=== PATIENT | female | born 1980 | race African-American/Black ===

== ENCOUNTER 2021-11-10 13:04 | Inpatient (IN) | payer OTHER ==
[~2021-11-10] VITALS: Ht 175.3 cm; Wt 145.1 kg
[2021-11-10] MEDS ORDERED: ONDANSETRON HCL INJ 2MG/ML 2ML 2 MG/ML VIAL IV STA ×2 (13:20→16:52)
[2021-11-10] MEDS ORDERED: LACTATED RINGER'S 1,000 ML INJ ONE (13:30)
[2021-11-10 13:59] LABS: BASOPHILS % 0.2 % (0.0-1.0); HEMATOCRIT 35.2 % (34.2-44.1); HEMOGLOBIN 11.4 g/dL (12.0-16.0); LYMPHOCYTES # (AUTO) 1.9 (1.0-3.2); LYMPHOCYTES % 14.4 % (18.0-39.1); MEAN CORPUSCULAR HEMOGLOBIN 28.2 pg (28-32); MEAN CORPUSCULAR HGB CONC 32.4 g/dL (31-35); MEAN CORPUSCULAR VOLUME 87.1 fL (81-99); MONOCYTES # (AUTO) 0.7 (0.2-0.8); MONOCYTES % 5.5 % (4.4-11.3); NEUTROPHILS # (AUTO) 10.4 (2.1-6.9); NEUTROPHILS % 79.4 % (38.7-80.0); PLATELET COUNT 252 x10e3/uL (140-360); RED BLOOD COUNT 4.04 x10e6/uL (3.6-5.1); RED CELL DISTRIBUTION WIDTH 13.8 % (11.7-14.4)
[2021-11-10 14:21] LABS: ALBUMIN 3.7 g/dL (3.5-5.0); ALBUMIN/GLOBULIN RATIO 0.8 (0.8-2.0); ANION GAP 32.5 mmol/L (8-16); CALCIUM 9.5 mg/dL (8.4-10.2); CREATININE, SERUM 15.38 mg/dL (0.57-1.11); LIPASE 25 U/L (8-78)
[2021-11-10 14:23] LABS: POTASSIUM 5.5 mmol/L (3.5-5.1)
[2021-11-10] MEDS ORDERED: ALBUTEROL SULF 0.083% NEB SOLN 3 ML NEB NEB STA (14:50)
[2021-11-10] MEDS ORDERED: DEXTROSE 50% SYRINGE 50 ML IV STA (14:50)
[2021-11-10] MEDS ORDERED: SODIUM BICARBONATE 8.4% INJ 50 ML SYR IV STA (14:50)
[2021-11-10] MEDS ORDERED: SOD POLYSTYRENE SULFONATE SUSP 15 GM/60 ML BTL PO ONE (15:00)
[2021-11-10] MEDS ORDERED: CALCIUM GLUC 1 G/50 ML NACL 100 ML IV ONE (15:00)
[2021-11-10] MEDS ORDERED: INSULIN REGULAR, HUMAN 100 UNIT/1 ML IV ONE (15:00)
[2021-11-10] MEDS ORDERED: LIDOCAINE HCL 1% LOCAL INJ 20 ML VIAL ONE (15:24)
[2021-11-10] MEDS ORDERED: HEPARIN SOD (PORCINE) 1000 UNIT/ML 10ML MDV IV ONE (15:45)
[2021-11-10] MEDS ORDERED: HEPARIN SOD (PORCINE) 1000 UNIT/ML SDV ONE (15:57)
[2021-11-10] MEDS ORDERED: SODIUM CHLORIDE 0.9% 1000ML 1,000 ML ONE (17:36)
[2021-11-10 18:54] LABS: CLARITY,URINE CLOUDY (CLEAR); COLOR,URINE YELLOW (YELLOW); KETONES,URINE TRACE (NEGATIVE); LEUKOCYTE ESTERASE ,URINE NEGATIVE (NEGATIVE); NITRITE,URINE NEGATIVE (NEGATIVE); PROTEIN,URINE DIPSTICK >=300 (NEGATIVE); URINE UROBILINOGEN 0.2 mg/dL (0.2 - 1)
[2021-11-10 19:01] LABS: AMORPHOUS SEDIMENT,URINE MODERATE (FEW); BACTERIA,URINE MANY /HPF
[2021-11-10 19:34] VITALS: BP 144/83
[2021-11-10] MEDS ORDERED: TIZANIDINE HCL4 MG PO (19:38)
[2021-11-10] MEDS ORDERED: EZETIMIBE10 MG PO (19:38)
[2021-11-10] MEDS ORDERED: ALPRAZOLAM0.5 MG PO (19:38)
[2021-11-10] MEDS ORDERED: AMLODIPINE BESYL5 MG PO (19:38)
[2021-11-10] MEDS ORDERED: AMBIEN10 MG PO (19:38)
[2021-11-10] MEDS ORDERED: DIVALPROEX SOD500 MG PO (19:38)
[2021-11-10] MEDS ORDERED: LISINOPRIL-HCT1 EACH PO (19:38)
[2021-11-10] MEDS ORDERED: TOUJEO SOL300 UNIT/1 SQ (19:38)
[2021-11-10] MEDS ORDERED: LEVOTHYROXINE75 MCG PO (19:38)
[2021-11-10] MEDS ORDERED: OZEMPIC1 MG/0.71 SQ (19:38)
[2021-11-10] MEDS ORDERED: PRAVASTATIN SOD80 MG PO (19:38)
[2021-11-10] MEDS ORDERED: RISPERIDONE2 MG PO (19:38)
[2021-11-10] MEDS ORDERED: METFORMIN HCL1000 MG PO (19:38)
[2021-11-10] MEDS ORDERED: ALPRAZOLAM 0.5 MG TAB PO PRN (21:15)
[2021-11-10] MEDS: SIMVASTATIN 40 MG TAB PO SCH (21:15)
[2021-11-10] MEDS: RISPERIDONE 1 MG TAB PO SCH (21:15)
[2021-11-10] MEDS: DEPAKOTE DELAYED-RELEASE TAB 500 MG PO SCH (21:15)
[2021-11-10] MEDS: SODIUM CHLORIDE 0.9% 1000ML 1,000 ML IV SCH (21:36)
[2021-11-10] MEDS ORDERED: ONDANSETRON HCL INJ 2MG/ML 2ML 2 MG/ML VIAL IV PRN (21:45)
[2021-11-11] VITALS (7 sets, daily range): BP systolic 107–141; BP diastolic 65–88
[2021-11-11] MEDS: SODIUM CHLORIDE 0.9% 1000ML 1,000 ML IV SCH ×3 (03:38→21:00)
[2021-11-11 05:38] LABS: BASOPHILS % 0.2 % (0.0-1.0); HEMATOCRIT 31.4 % (34.2-44.1); HEMOGLOBIN 10.5 g/dL (12.0-16.0); LYMPHOCYTES # (AUTO) 1.8 (1.0-3.2); LYMPHOCYTES % 14.6 % (18.0-39.1); MEAN CORPUSCULAR HEMOGLOBIN 28.6 pg (28-32); MEAN CORPUSCULAR HGB CONC 33.4 g/dL (31-35); MEAN CORPUSCULAR VOLUME 85.6 fL (81-99); MONOCYTES # (AUTO) 1.3 (0.2-0.8); MONOCYTES % 10.1 % (4.4-11.3); NEUTROPHILS # (AUTO) 9.4 (2.1-6.9); NEUTROPHILS % 74.6 % (38.7-80.0); PLATELET COUNT 219 x10e3/uL (140-360); RED BLOOD COUNT 3.67 x10e6/uL (3.6-5.1); RED CELL DISTRIBUTION WIDTH 13.6 % (11.7-14.4)
[2021-11-11 06:00] LABS: ANION GAP 26.8 mmol/L (8-16); CALCIUM 8.7 mg/dL (8.4-10.2); CREATININE, SERUM 15.7 mg/dL (0.57-1.11); POTASSIUM 4.8 mmol/L (3.5-5.1)
[2021-11-11] MEDS: LEVOTHYROXINE SODIUM 75 MCG TAB PO SCH (06:00)
[2021-11-11] MEDS ORDERED: MANNITOL 25% 12.5GM/50ML 100 ML ONE (08:50)
[2021-11-11] MEDS ORDERED: SODIUM CHLORIDE 0.9% 1000ML 2,000 ML ONE (08:51)
[2021-11-11] MEDS ORDERED: METFORMIN HCL 500 MG TAB PO SCH (09:00)
[2021-11-11] MEDS: EZETIMIBE 10 MG TAB PO SCH (09:25)
[2021-11-11] MEDS: RISPERIDONE 1 MG TAB PO SCH ×2 (09:25→17:41)
[2021-11-11] MEDS: DEPAKOTE DELAYED-RELEASE TAB 500 MG PO SCH ×2 (09:25→17:41)
[2021-11-11] MEDS ORDERED: MANNITOL 25% 12.5GM/50 ML VIAL IV PRN (09:30)
[2021-11-11] MEDS ORDERED: SODIUM CHLORIDE 0.9% 1000ML 2,000 ML IV PRN (09:30)
[2021-11-11] MEDS ORDERED: HEPARIN SOD (PORCINE) 1000 UNIT/ML SDV IV PRN (09:30)
[2021-11-11] MEDS: LISINOPRIL 20 MG TAB PO SCH (13:43)
[2021-11-11] MEDS: AMLODIPINE BESYLATE 5 MG TAB PO SCH (13:44)
[2021-11-11] MEDS: HYDROCHLOROTHIAZIDE 25 MG TAB PO SCH (13:44)
[2021-11-11] MEDS: SIMVASTATIN 40 MG TAB PO SCH (20:57)
[2021-11-11] MEDS: TIZANIDINE HCL 4 MG TAB PO PRN (20:57)
[2021-11-11] MEDS: ZOLPIDEM TARTRATE 10 MG TAB PO PRN (20:57)
[2021-11-12] VITALS (8 sets, daily range): BP systolic 101–130; BP diastolic 66–85
[2021-11-12] MEDS: SODIUM CHLORIDE 0.9% 1000ML 1,000 ML IV SCH (06:19)
[2021-11-12] MEDS: LEVOTHYROXINE SODIUM 75 MCG TAB PO SCH (06:19)
[2021-11-12 06:25] LABS: BASOPHILS % 0.3 % (0.0-1.0); EOSINOPHILS # (AUTO) 0.1 (0.0-0.4); EOSINOPHILS % 0.9 % (0.0-6.0); HEMATOCRIT 29.2 % (34.2-44.1); HEMOGLOBIN 9.5 g/dL (12.0-16.0); LYMPHOCYTES % 21.5 % (18.0-39.1); MEAN CORPUSCULAR HEMOGLOBIN 28.4 pg (28-32); MEAN CORPUSCULAR HGB CONC 32.5 g/dL (31-35); MEAN CORPUSCULAR VOLUME 87.4 fL (81-99); MONOCYTES # (AUTO) 1.1 (0.2-0.8); MONOCYTES % 11.9 % (4.4-11.3); PLATELET COUNT 169 x10e3/uL (140-360); RED BLOOD COUNT 3.34 x10e6/uL (3.6-5.1); RED CELL DISTRIBUTION WIDTH 13.5 % (11.7-14.4)
[2021-11-12 06:48] LABS: ANION GAP 14.9 mmol/L (8-16); CREATININE, SERUM 11.34 mg/dL (0.57-1.11); POTASSIUM 3.9 mmol/L (3.5-5.1)
[2021-11-12] MEDS: RISPERIDONE 1 MG TAB PO SCH ×2 (08:40→17:00)
[2021-11-12] MEDS: DEPAKOTE DELAYED-RELEASE TAB 500 MG PO SCH ×2 (08:40→17:00)
[2021-11-12] MEDS: EZETIMIBE 10 MG TAB PO SCH (08:41)
[2021-11-12] MEDS ORDERED: SODIUM CHLORIDE 0.9% 250ML 500 ML IV PRN (10:15)
[2021-11-12] MEDS ORDERED: ALBUMIN 25% 12.5GM 0.25 GM/ML BTL IV PRN (10:15)
[2021-11-12] MEDS ORDERED: SODIUM CHLORIDE 0.9% 1000ML 2,000 ML IV PRN (10:15)
[2021-11-12] MEDS ORDERED: HEPARIN SOD (PORCINE) 1000 UNIT/ML SDV IV PRN (10:15)
[2021-11-12] MEDS: LISINOPRIL 20 MG TAB PO SCH (13:09)
[2021-11-12] MEDS: HYDROCHLOROTHIAZIDE 25 MG TAB PO SCH (13:09)
[2021-11-12] MEDS: AMLODIPINE BESYLATE 5 MG TAB PO SCH (13:09)
[2021-11-12 18:27] LABS: INR 0.98; PROTHROMBIN TIME 13.9 seconds (11.9-14.5)
[2021-11-12 18:28] LABS: PARTIAL THROMBOPLASTIN TIME 28.6 seconds (23.8-35.5)
[2021-11-12 21:09] LABS: TOTAL PROTEIN 24HR, URINE 1417.5 mg/24hr (50-100); TOTAL PROTEIN, URINE 40.5 mg/dL (1-14)
[2021-11-12] MEDS: SIMVASTATIN 40 MG TAB PO SCH (21:27)
[2021-11-12] MEDS: ZOLPIDEM TARTRATE 10 MG TAB PO PRN (21:33)
[2021-11-12] MEDS: TIZANIDINE HCL 4 MG TAB PO PRN (21:34)
[2021-11-13] VITALS (8 sets, daily range): BP systolic 113–143; BP diastolic 67–88
[2021-11-13 07:15] LABS: ANION GAP 14.7 mmol/L (8-16); CALCIUM 8.7 mg/dL (8.4-10.2); CREATININE, SERUM 5.87 mg/dL (0.57-1.11); POTASSIUM 3.7 mmol/L (3.5-5.1)
[2021-11-13] MEDS ORDERED: DEXTROSE 50% SYRINGE 50 ML IV PRN (07:45)
[2021-11-13] MEDS: INSULIN LISPRO 100 UNIT/1 ML 3ML VIAL SQ SCH ×7 (08:29→21:43)
[2021-11-13] MEDS: RISPERIDONE 1 MG TAB PO SCH ×2 (08:29→16:20)
[2021-11-13] MEDS: LEVOTHYROXINE SODIUM 75 MCG TAB PO SCH (08:29)
[2021-11-13] MEDS: DEPAKOTE DELAYED-RELEASE TAB 500 MG PO SCH ×2 (08:29→16:20)
[2021-11-13] MEDS: EZETIMIBE 10 MG TAB PO SCH (08:30)
[2021-11-13] MEDS: LISINOPRIL 20 MG TAB PO SCH (11:39)
[2021-11-13] MEDS: HYDROCHLOROTHIAZIDE 25 MG TAB PO SCH (11:39)
[2021-11-13] MEDS: AMLODIPINE BESYLATE 5 MG TAB PO SCH (11:39)
[2021-11-13] MEDS ORDERED: INSULIN GLARGINE 100 UNITS/ML VIAL SQ SCH (21:00)
[2021-11-13] MEDS: SIMVASTATIN 40 MG TAB PO SCH (21:42)
[2021-11-13] MEDS: ZOLPIDEM TARTRATE 10 MG TAB PO PRN (21:45)
[2021-11-13] MEDS: TIZANIDINE HCL 4 MG TAB PO PRN (21:45)
[2021-11-14] VITALS (8 sets, daily range): BP systolic 91–135; BP diastolic 66–85
[2021-11-14] MEDS: LEVOTHYROXINE SODIUM 75 MCG TAB PO SCH (05:50)
[2021-11-14 07:22] LABS: BASOPHILS % 0.3 % (0.0-1.0); EOSINOPHILS # (AUTO) 0.3 (0.0-0.4); EOSINOPHILS % 2.7 % (0.0-6.0); HEMATOCRIT 31.4 % (34.2-44.1); HEMOGLOBIN 10.2 g/dL (12.0-16.0); LYMPHOCYTES # (AUTO) 1.9 (1.0-3.2); LYMPHOCYTES % 19.8 % (18.0-39.1); MEAN CORPUSCULAR HEMOGLOBIN 28.3 pg (28-32); MEAN CORPUSCULAR HGB CONC 32.5 g/dL (31-35); MONOCYTES # (AUTO) 0.9 (0.2-0.8); MONOCYTES % 9.5 % (4.4-11.3); NEUTROPHILS # (AUTO) 6.6 (2.1-6.9); NEUTROPHILS % 67.3 % (38.7-80.0); PLATELET COUNT 120 x10e3/uL (140-360); RED BLOOD COUNT 3.61 x10e6/uL (3.6-5.1)
[2021-11-14 07:49] LABS: ANION GAP 13.6 mmol/L (8-16); CALCIUM 9.1 mg/dL (8.4-10.2); CREATININE, SERUM 3.09 mg/dL (0.57-1.11); POTASSIUM 3.6 mmol/L (3.5-5.1)
[2021-11-14] MEDS: INSULIN LISPRO 100 UNIT/1 ML 3ML VIAL SQ SCH ×7 (08:14→21:00)
[2021-11-14] MEDS: DEPAKOTE DELAYED-RELEASE TAB 500 MG PO SCH ×2 (08:14→16:34)
[2021-11-14] MEDS: EZETIMIBE 10 MG TAB PO SCH (08:15)
[2021-11-14] MEDS: AMLODIPINE BESYLATE 5 MG TAB PO SCH (08:15)
[2021-11-14] MEDS: RISPERIDONE 1 MG TAB PO SCH ×2 (08:15→16:34)
[2021-11-14] MEDS: SIMVASTATIN 40 MG TAB PO SCH (20:55)
[2021-11-14] MEDS: INSULIN GLARGINE 100 UNITS/ML VIAL SQ SCH (21:00)
[2021-11-14] MEDS: ZOLPIDEM TARTRATE 10 MG TAB PO PRN (22:00)
[2021-11-14] MEDS: TIZANIDINE HCL 4 MG TAB PO PRN (22:00)
[2021-11-15] VITALS (7 sets, daily range): BP systolic 96–141; BP diastolic 61–92
[2021-11-15 05:52] LABS: BASOPHILS # (AUTO) 0.1 (0.0-0.1); BASOPHILS % 0.4 % (0.0-1.0); EOSINOPHILS # (AUTO) 0.2 (0.0-0.4); EOSINOPHILS % 1.5 % (0.0-6.0); HEMATOCRIT 31.8 % (34.2-44.1); HEMOGLOBIN 10.4 g/dL (12.0-16.0); LYMPHOCYTES % 26.1 % (18.0-39.1); MEAN CORPUSCULAR HEMOGLOBIN 28.4 pg (28-32); MEAN CORPUSCULAR HGB CONC 32.7 g/dL (31-35); MEAN CORPUSCULAR VOLUME 86.9 fL (81-99); MONOCYTES % 8.3 % (4.4-11.3); NEUTROPHILS # (AUTO) 7.4 (2.1-6.9); NEUTROPHILS % 63.2 % (38.7-80.0); PLATELET COUNT 134 x10e3/uL (140-360); RED BLOOD COUNT 3.66 x10e6/uL (3.6-5.1); RED CELL DISTRIBUTION WIDTH 12.8 % (11.7-14.4)
[2021-11-15] MEDS: LEVOTHYROXINE SODIUM 75 MCG TAB PO SCH (06:00)
[2021-11-15 06:17] LABS: ANION GAP 14.2 mmol/L (8-16); CREATININE, SERUM 2.66 mg/dL (0.57-1.11); POTASSIUM 3.2 mmol/L (3.5-5.1)
[2021-11-15] MEDS: INSULIN LISPRO 100 UNIT/1 ML 3ML VIAL SQ SCH ×7 (09:14→21:44)
[2021-11-15] MEDS: EZETIMIBE 10 MG TAB PO SCH (09:15)
[2021-11-15] MEDS: DEPAKOTE DELAYED-RELEASE TAB 500 MG PO SCH ×2 (09:15→19:34)
[2021-11-15] MEDS: AMLODIPINE BESYLATE 5 MG TAB PO SCH (09:15)
[2021-11-15] MEDS: RISPERIDONE 1 MG TAB PO SCH ×2 (09:15→19:34)
[2021-11-15] MEDS ORDERED: ONDANSETRON HCL 4 MG ORAL DISINTEGRATING TAB PO PRN (12:45)
[2021-11-15] MEDS ORDERED: LIDOCAINE HCL 1% LOCAL INJ 20 ML VIAL ONE (12:55)
[2021-11-15] MEDS ORDERED: FENTANYL CITRATE/PF 100MCG/2 ML INJ ONE (13:06)
[2021-11-15] MEDS ORDERED: MIDAZOLAM HCL 2 MG/2 ML VIAL ONE (13:06)
[2021-11-15] MEDS: SIMVASTATIN 40 MG TAB PO SCH (21:25)
[2021-11-15] MEDS: INSULIN GLARGINE 100 UNITS/ML VIAL SQ SCH (21:45)
[2021-11-15] MEDS: TIZANIDINE HCL 4 MG TAB PO PRN (21:56)
[2021-11-15] MEDS: ZOLPIDEM TARTRATE 10 MG TAB PO PRN (21:57)
[2021-11-16] VITALS: BP 92/52
[2021-11-16 04:00] VITALS: BP 127/88
[2021-11-16] MEDS: LEVOTHYROXINE SODIUM 75 MCG TAB PO SCH (06:40)
[2021-11-16] MEDS: INSULIN LISPRO 100 UNIT/1 ML 3ML VIAL SQ SCH ×7 (07:30→21:00)
[2021-11-16 07:57] VITALS: BP 123/81
[2021-11-16 09:04] LABS: ANION GAP 14.5 mmol/L (8-16); CALCIUM 8.4 mg/dL (8.4-10.2); CREATININE, SERUM 2.15 mg/dL (0.57-1.11); POTASSIUM 3.5 mmol/L (3.5-5.1)
[2021-11-16] MEDS: EZETIMIBE 10 MG TAB PO SCH (09:31)
[2021-11-16] MEDS: AMLODIPINE BESYLATE 5 MG TAB PO SCH (09:31)
[2021-11-16] MEDS: DEPAKOTE DELAYED-RELEASE TAB 500 MG PO SCH ×2 (09:31→16:08)
[2021-11-16] MEDS: RISPERIDONE 1 MG TAB PO SCH ×2 (09:31→16:08)
[2021-11-16 15:33] VITALS: BP 126/76
[2021-11-16 20:00] VITALS: BP 128/81
[2021-11-16] MEDS: INSULIN GLARGINE 100 UNITS/ML VIAL SQ SCH (21:00)
[2021-11-16] MEDS: ZOLPIDEM TARTRATE 10 MG TAB PO PRN (22:10)
[2021-11-16] MEDS: TIZANIDINE HCL 4 MG TAB PO PRN (22:10)
[2021-11-16] MEDS: SIMVASTATIN 40 MG TAB PO SCH (22:12)
[2021-11-17 00:08] VITALS: BP 87/57
[2021-11-17 03:45] VITALS: BP 135/74
[2021-11-17 05:23] LABS: ANION GAP 14.4 mmol/L (8-16); CALCIUM 8.2 mg/dL (8.4-10.2); CREATININE, SERUM 1.93 mg/dL (0.57-1.11); POTASSIUM 3.4 mmol/L (3.5-5.1)
[2021-11-17] MEDS: LEVOTHYROXINE SODIUM 75 MCG TAB PO SCH (05:45)
[2021-11-17] MEDS: INSULIN LISPRO 100 UNIT/1 ML 3ML VIAL SQ SCH ×9 (08:00→21:55)
[2021-11-17 08:56] VITALS: BP 135/74
[2021-11-17] MEDS: RISPERIDONE 1 MG TAB PO SCH ×2 (09:00→17:45)
[2021-11-17] MEDS: AMLODIPINE BESYLATE 5 MG TAB PO SCH (09:00)
[2021-11-17] MEDS: EZETIMIBE 10 MG TAB PO SCH (09:00)
[2021-11-17] MEDS: DEPAKOTE DELAYED-RELEASE TAB 500 MG PO SCH ×2 (09:00→17:45)
[2021-11-17] MEDS ORDERED: POTASSIUM CHLORIDE 20 MEQ TAB CR PO ONE (11:30)
[2021-11-17 20:00] VITALS: BP 131/94
[2021-11-17] MEDS: INSULIN GLARGINE 100 UNITS/ML VIAL SQ SCH (21:55)
[2021-11-17] MEDS: SIMVASTATIN 40 MG TAB PO SCH (21:55)
[2021-11-17] MEDS: TIZANIDINE HCL 4 MG TAB PO PRN (22:00)
[2021-11-17 23:58] VITALS: BP 124/81
[2021-11-18 00:30] VITALS: BP 124/81
[2021-11-18 04:00] VITALS: BP 131/82
[2021-11-18] MEDS: LEVOTHYROXINE SODIUM 75 MCG TAB PO SCH (06:00)
[2021-11-18] MEDS: INSULIN LISPRO 100 UNIT/1 ML 3ML VIAL SQ SCH ×6 (08:00→16:30)
[2021-11-18] MEDS: DEPAKOTE DELAYED-RELEASE TAB 500 MG PO SCH ×2 (08:44→16:47)
[2021-11-18] MEDS: EZETIMIBE 10 MG TAB PO SCH (08:44)
[2021-11-18] MEDS: AMLODIPINE BESYLATE 5 MG TAB PO SCH (08:44)
[2021-11-18] MEDS: RISPERIDONE 1 MG TAB PO SCH ×2 (08:44→16:47)
[2021-11-18 08:48] VITALS: BP 131/82
[2021-11-18 09:06] LABS: BASOPHILS # (AUTO) 0.1 (0.0-0.1); BASOPHILS % 0.7 % (0.0-1.0); EOSINOPHILS # (AUTO) 0.1 (0.0-0.4); EOSINOPHILS % 1.1 % (0.0-6.0); HEMATOCRIT 31.9 % (34.2-44.1); LYMPHOCYTES # (AUTO) 2.1 (1.0-3.2); LYMPHOCYTES % 21.2 % (18.0-39.1); MEAN CORPUSCULAR HEMOGLOBIN 28.2 pg (28-32); MEAN CORPUSCULAR HGB CONC 31.3 g/dL (31-35); MEAN CORPUSCULAR VOLUME 90.1 fL (81-99); MONOCYTES # (AUTO) 0.9 (0.2-0.8); MONOCYTES % 9.2 % (4.4-11.3); NEUTROPHILS # (AUTO) 6.5 (2.1-6.9); NEUTROPHILS % 67.1 % (38.7-80.0); PLATELET COUNT 180 x10e3/uL (140-360); RED BLOOD COUNT 3.54 x10e6/uL (3.6-5.1); RED CELL DISTRIBUTION WIDTH 13.2 % (11.7-14.4)
[2021-11-18 09:13] LABS: ANION GAP 16.1 mmol/L (8-16); CALCIUM 8.4 mg/dL (8.4-10.2); CREATININE, SERUM 1.65 mg/dL (0.57-1.11); POTASSIUM 4.1 mmol/L (3.5-5.1)
== END 2021-11-18 17:00 | disposition home or self-care (01) | DRG 683 ==
LOC: ER 13:08 → ERHOLD 15:19 → MED/SURG2 19:34
PROC: 02H633Z Insertion of Infusion Device into Right Atrium, Percutaneous Approach (ICD-10-PCS; 2021-11-10)
PROC: B5181ZA Fluoroscopy of Superior Vena Cava using Low Osmolar Contrast, Guidance (ICD-10-PCS; 2021-11-10)
PROC: 5A1D70Z Performance of Urinary Filtration, Intermittent, Less than 6 Hours Per Day (ICD-10-PCS; 2021-11-10)
PROC: 0TB13ZX Excision of Left Kidney, Percutaneous Approach, Diagnostic (ICD-10-PCS; principal; 2021-11-15)
DX: N17.9 Acute kidney failure, unspecified (principal); I12.0 Hypertensive chronic kidney disease with stage 5 chronic kidney disease or end stage renal disease; Z68.42 Body mass index [BMI] 45.0-49.9, adult; E87.2 Acidosis; E87.5 Hyperkalemia; N18.5 Chronic kidney disease, stage 5; E66.01 Morbid (severe) obesity due to excess calories; Z90.49 Acquired absence of other specified parts of digestive tract; E86.0 Dehydration; K76.9 Liver disease, unspecified; E11.22 Type 2 diabetes mellitus with diabetic chronic kidney disease; E03.9 Hypothyroidism, unspecified; E78.00 Pure hypercholesterolemia, unspecified; D64.9 Anemia, unspecified; E87.6 Hypokalemia; Z20.822 Contact with and (suspected) exposure to COVID-19
CPT/HCPCS: 36415; 36556; 50200; 51700; 71045; 74470; 76770; 76937; 77001; 77012; 80048; 80053; 81001; 81050; 82948; 83690; 83880; 84156; 84165; 84702; 85025; 85610; 85730; 86021; 86039; 86160; 86225; 86704; 86706; 87086; 87340; 87350; 90962; 93005; 94640; 94799; 96372; 99152; 99153; 99284; C1752; C1769; J1644; J1815; J2001; J2150; J2250; J2405; J3010; J7030; J7121; J7799; U0002

== ENCOUNTER 2022-09-28 16:13 | Emergency (ER) | payer OTHER ==
[~2022-09-28] VITALS: Ht 175.3 cm; Wt 145.1 kg
[~2022-09-28 16:13] MED LIST: ALPRAZOLAM0.5 MG PO; AMBIEN10 MG PO; AMLODIPINE BESYL5 MG PO; DIVALPROEX SOD500 MG PO; EZETIMIBE10 MG PO; LEVOTHYROXINE75 MCG PO; LISINOPRIL-HCT1 EACH PO; METFORMIN HCL1000 MG PO; OZEMPIC1 MG/0.71 SQ; PRAVASTATIN SOD80 MG PO; RISPERIDONE2 MG PO; TIZANIDINE HCL4 MG PO; TOUJEO SOL300 UNIT/1 SQ
[2022-09-28 19:03] VITALS: BP 129/84
== END 2022-09-28 19:05 | disposition home or self-care (01) ==
LOC: ER 16:20
DX: M79.605 Pain in left leg (principal); M77.32 Calcaneal spur, left foot; M25.472 Effusion, left ankle; I10 Essential (primary) hypertension; E11.9 Type 2 diabetes mellitus without complications
CPT/HCPCS: 93971; 99283